=== PATIENT | female | born 2000 | race Caucasian/White ===

== ENCOUNTER 2019-11-27 13:25 | Emergency (ER) | payer OTHER ==
[~2019-11-27] VITALS: Ht 172.7 cm; Wt 78.5 kg
[2019-11-27 13:26] VITALS: BP 137/79
[2019-11-27] MEDS ORDERED: ACETAMINOPHEN TAB 650MG DOSE (2X325MG) PO ONE (14:30)
[2019-11-27 14:31] LABS: BASO % 0.5 % (0.0-1.0); EOS # 0.1 10^3/uL (0.0-0.5); EOS % 0.9 % (0.0-3.0); HEMATOCRIT 40.5 % (36.0-47.0); HEMOGLOBIN 13.2 g/dl (12.0-15.5); LYMPH # 1.6 10^3/uL (1.5-5.0); LYMPH % 27.5 % (24.0-44.0); MEAN CORPUSCULAR HEMOGLOBIN 29.7 pg (27.0-33.0); MEAN CORPUSCULAR HGB CONC 32.6 g/dl (32.0-36.5); MONO # 0.6 10^3/uL (0.0-0.8); MONO % 10.4 % (0.0-5.0); NEUTROPHILS # 3.4 10^3/uL (1.5-8.5); NEUTROPHILS % 60.7 % (36.0-66.0); PLATELET COUNT, AUTOMATED 254 10^3/uL (150-450); RED BLOOD COUNT 4.45 10^6/uL (4.00-5.40); WHITE BLOOD COUNT 5.7 10^3/uL (4.0-10.0)
[2019-11-27 14:58] LABS: HCG, SERUM QUALITATIVE NEGATIVE (NEGATIVE)
[2019-11-27 14:59] LABS: ALBUMIN 4.3 GM/DL (3.2-5.2); ALT/SGPT 37 U/L (12-78); BILIRUBIN,DIRECT 0.2 MG/DL (0.0-0.2); BILIRUBIN,TOTAL 0.7 MG/DL (0.2-1.0); BLOOD UREA NITROGEN 15 MG/DL (7-18); CALCIUM LEVEL 9.1 MG/DL (8.5-10.1); CARBON DIOXIDE LEVEL 27 MEQ/L (21-32); CHLORIDE LEVEL 108 MEQ/L (98-107); CREATININE FOR GFR 0.59 MG/DL (0.55-1.30); GLUCOSE, FASTING 93 MG/DL (70-100); SODIUM LEVEL 139 MEQ/L (136-145); TOTAL PROTEIN 7.3 GM/DL (6.4-8.2)
[2019-11-27] MEDS ORDERED: HIBI4LIQ EX (16:09)
--- NOTE | 2019-11-27 16:10 | REPVR ---
PROCEDURE INFORMATION: Exam: US Abdomen; Limited Exam date and time: 11/27/2019 3:59 PM Age: 19 years old Clinical indication: Abdominal tenderness; Abdominal pain; Generalized; Additional info: Drainage from umbilicus, concern for abscess TECHNIQUE: Imaging protocol: Limited ultrasound of the umbilical region. COMPARISON: No relevant prior studies available. FINDINGS: No pathologic soft tissue or cystic mass identified in the visualized umbilicus. IMPRESSION: No pathologic soft tissue or cystic mass identified in the visualized umbilicus. Electronically signed by: Neeraj Tejada On 11/27/2019 16:09:41 PM
== END 2019-11-27 16:19 | disposition home or self-care (01) ==
LOC: M ED 13:25
DX: R10.33 Periumbilical pain (principal); I10 Essential (primary) hypertension; F17.200 Nicotine dependence, unspecified, uncomplicated; Z88.1 Allergy status to other antibiotic agents

== ENCOUNTER → 2021-05-13 | Outpatient (CLI) | payer OTHER ==
[~2021-05-13] MED LIST: HIBI4LIQ EX
== END ==
LOC: M RAD 09:56
PROVIDERS: ATTEND Physician Assistant Medical
DX: Z32.01 Encounter for pregnancy test, result positive (principal); Z3A.14 14 weeks gestation of pregnancy

== ENCOUNTER 2022-10-15 09:18 | Inpatient (IN) | payer MEDICAID, OTHER, SELFPAY ==
[~2022-10-15] VITALS: Ht 175.3 cm; Wt 88.0 kg
[2022-10-15 09:59] LABS: HEMOGLOBIN 13.3 g/dl (12.0-15.5); MEAN CORPUSCULAR HEMOGLOBIN 31.1 pg (27.0-33.0); MEAN CORPUSCULAR HGB CONC 33.3 g/dl (32.0-36.5); MEAN CORPUSCULAR VOLUME 93.5 fl (80.0-96.0); PLATELET COUNT, AUTOMATED 274 10^3/uL (150-450); RED BLOOD COUNT 4.28 10^6/uL (4.00-5.40); WHITE BLOOD COUNT 5.3 10^3/uL (4.0-10.0)
[2022-10-15] MEDS ORDERED: MED REC IN PROGRESS XX SCH (10:20)
[2022-10-15 10:23] LABS: AMPHETAMINES LEVEL URINE NEGATIVE (NEGATIVE)
[2022-10-15 10:24] LABS: BARBITURATES URINE NEGATIVE (NEGATIVE); BENZODIAZEPINES URINE NEGATIVE (NEGATIVE); CANNABINOIDS URINE NEGATIVE (NEGATIVE); COCAINE METABOLITE URINE NEGATIVE (NEGATIVE); METHADONE URINE NEGATIVE (NEGATIVE); OPIATES URINE NEGATIVE (NEGATIVE); PHENCYCLIDINE URINE NEGATIVE (NEGATIVE)
[2022-10-15 10:40] LABS: ALBUMIN 3.8 G/DL (3.2-5.2); ALKALINE PHOSPHATASE 60 U/L (46-116); ALT/SGPT 21 U/L (7.0-40); AST/SGOT 16 U/L (<34); BILIRUBIN,DIRECT 0.2 MG/DL (<0.4); BILIRUBIN,TOTAL 0.5 MG/DL (0.3-1.2); BLOOD UREA NITROGEN 9 MG/DL (9-23); CALCIUM LEVEL 9.1 MG/DL (8.5-10.1); CARBON DIOXIDE LEVEL 27 MMOL/L (20-31); CHLORIDE LEVEL 108 MMOL/L (98-107); CREATININE FOR GFR 0.64 MG/DL (0.55-1.30); GLOMERULAR FILTRATION RATE > 60.0 (>60); GLUCOSE, FASTING 83 MG/DL (60-100); SALICYLATE LEVEL < 3.0 MG/DL (<30); SODIUM LEVEL 140 MMOL/L (136-145); TOTAL PROTEIN 6.6 G/DL (5.7-8.2)
[2022-10-15 10:42] LABS: ETHYL ALCOHOL (ETHANOL) < 0.003 % (0.000-0.010); THYROID STIMULATING HORMONE 2.275 uIU/ML (0.55-4.78)
[2022-10-15 10:44] LABS: ACETAMINOPHEN LEVEL < 2.0 UG/ML (10.0-20.0)
[2022-10-15 11:18] LABS: HCG, SERUM QUALITATIVE NEGATIVE (NEGATIVE)
[2022-10-15] MEDS ORDERED: ACETAMINOPHEN TAB 650MG DOSE (2X325MG) PO PRN (11:45)
[2022-10-15] MEDS ORDERED: LORazepam 2 MG TAB PO PRN (11:45)
[2022-10-15] MEDS ORDERED: MAALOX 30 ML SUSP *UDC PO PRN (11:45)
[2022-10-15] MEDS ORDERED: OLANZapine ORAL DISINTEGRATING TAB 5MG PO PRN (11:45)
[2022-10-15] MEDS ORDERED: IBUPROFEN 400MG TAB PO PRN (11:45)
[2022-10-15] MEDS ORDERED: traZODone 50 MG TAB PO PRN (11:45)
[2022-10-15] MEDS ORDERED: MOM 30ML SUSPENSION UDC PO PRN (11:45)
[2022-10-15] MEDS ORDERED: HOME MED LIST COMPLETE! XX SCH (12:50)
[2022-10-15] MEDS ORDERED: THIAMINE 100 MG TAB PO SCH (13:32)
[2022-10-15 14:44] VITALS: BP 122/69; TEMP 98.1; O2SAT 98
[2022-10-15] MEDS: FOLIC ACID 1MG TAB PO SCH (16:39)
[2022-10-15] MEDS: MULTIVITAMINS/MINERALS THERAP 1 TAB PO SCH (16:39)
[2022-10-15 17:42] VITALS: BP 122/69
[2022-10-15] MEDS: THIAMINE 100 MG TAB PO SCH (21:05)
[2022-10-16 02:00] VITALS: BP 122/69
[2022-10-16 06:29] VITALS: BP 135/90; TEMP 97.6; O2SAT 99
[2022-10-16] MEDS: FOLIC ACID 1MG TAB PO SCH (09:27)
[2022-10-16] MEDS: THIAMINE 100 MG TAB PO SCH ×2 (09:28→20:48)
[2022-10-16] MEDS: MULTIVITAMINS/MINERALS THERAP 1 TAB PO SCH (09:28)
[2022-10-16] MEDS: DULoxetine 30MG CAPSULE (CYMBALTA) PO SCH (10:11)
[2022-10-16] MEDS: NICOTINE 21MG/24HR 1 EA TRANSDERMAL TD PRN (10:11)
[2022-10-16 14:00] VITALS: BP 150/85
[2022-10-16 18:06] VITALS: BP 150/91; TEMP 97.8
[2022-10-16] MEDS: MIRTAZAPINE 15 MG TAB PO SCH (20:48)
[2022-10-16 22:00] VITALS: BP 150/91
[2022-10-17 06:37] VITALS: BP 130/86; TEMP 98.2; O2SAT 99
[2022-10-17] MEDS: MULTIVITAMINS/MINERALS THERAP 1 TAB PO SCH (09:23)
[2022-10-17] MEDS: DULoxetine 30MG CAPSULE (CYMBALTA) PO SCH (09:23)
[2022-10-17] MEDS: THIAMINE 100 MG TAB PO SCH ×2 (09:23→21:05)
[2022-10-17] MEDS: FOLIC ACID 1MG TAB PO SCH (09:24)
[2022-10-17] MEDS: NICOTINE 21MG/24HR 1 EA TRANSDERMAL TD PRN (09:26)
[2022-10-17 17:42] VITALS: BP 135/87; TEMP 97.8; O2SAT 98
[2022-10-17] MEDS: MIRTAZAPINE 15 MG TAB PO SCH (21:05)
[2022-10-18 06:08] VITALS: BP 148/86; TEMP 98.1; O2SAT 98
[2022-10-18] MEDS: DULoxetine 30MG CAPSULE (CYMBALTA) PO SCH (09:39)
[2022-10-18] MEDS: THIAMINE 100 MG TAB PO SCH (09:39)
[2022-10-18] MEDS: NICOTINE 21MG/24HR 1 EA TRANSDERMAL TD PRN (09:39)
[2022-10-18] MEDS: FOLIC ACID 1MG TAB PO SCH (09:39)
[2022-10-18] MEDS: MULTIVITAMINS/MINERALS THERAP 1 TAB PO SCH (09:40)
[2022-10-18] MEDS ORDERED: cloNIDine 0.1MG TABLET PO PRN (14:35)
[2022-10-18] MEDS: amLODIPine 5 MG TAB PO SCH (14:49)
[2022-10-18 18:28] VITALS: BP 164/102; TEMP 98.7; O2SAT 92
[2022-10-18] MEDS: MIRTAZAPINE 15 MG TAB PO SCH (20:31)
[2022-10-19 05:55] VITALS: BP 146/92; TEMP 97.9; O2SAT 98
[2022-10-19 09:00] VITALS: BP 142/98
[2022-10-19] MEDS: MULTIVITAMINS/MINERALS THERAP 1 TAB PO SCH (09:01)
[2022-10-19] MEDS: NICOTINE 21MG/24HR 1 EA TRANSDERMAL TD PRN (09:01)
[2022-10-19] MEDS: DULoxetine 30MG CAPSULE (CYMBALTA) PO SCH (09:01)
[2022-10-19] MEDS: amLODIPine 5 MG TAB PO SCH (09:01)
[2022-10-19] MEDS: FOLIC ACID 1MG TAB PO SCH (09:01)
[2022-10-19] MEDS: diphenhydrAMINE 25MG CAP PO PRN ×2 (11:56→23:11)
[2022-10-19 17:53] VITALS: BP 137/76; TEMP 97.5; O2SAT 94
[2022-10-19] MEDS: MIRTAZAPINE 15 MG TAB PO SCH (20:45)
[2022-10-20 07:07] VITALS: BP 131/83; TEMP 97.7; O2SAT 98
[2022-10-20] MEDS: DULoxetine 30MG CAPSULE (CYMBALTA) PO SCH (08:47)
[2022-10-20] MEDS: FOLIC ACID 1MG TAB PO SCH (08:47)
[2022-10-20] MEDS: amLODIPine 5 MG TAB PO SCH (08:47)
[2022-10-20] MEDS: MULTIVITAMINS/MINERALS THERAP 1 TAB PO SCH (08:47)
[2022-10-20] MEDS: NICOTINE 21MG/24HR 1 EA TRANSDERMAL TD PRN (08:48)
[2022-10-20] MEDS ORDERED: TRAZ-252 PO (09:35)
[2022-10-20] MEDS ORDERED: AMLO1TAB24 PO (09:35)
[2022-10-20] MEDS ORDERED: NICO21PAT TD (09:35)
[2022-10-20] MEDS ORDERED: MIRT-10 PO (09:35)
[2022-10-20] MEDS ORDERED: VITMTA PO (09:35)
[2022-10-20] MEDS ORDERED: CLONI1TA PO (09:35)
[2022-10-20] MEDS ORDERED: CYMB1CAP5 PO (09:35)
[2022-10-20] MEDS: diphenhydrAMINE 25MG CAP PO PRN (11:11)
[2022-10-20 18:23] VITALS: BP 140/89; TEMP 97.3; O2SAT 99
[2022-10-20] MEDS: MIRTAZAPINE 15 MG TAB PO SCH (22:43)
[2022-10-21 06:56] VITALS: BP 135/90; TEMP 97.4; O2SAT 97
[2022-10-21] MEDS ORDERED: HYDR50TA70 PO (08:20)
[2022-10-21 08:36] VITALS: BP 136/84
[2022-10-21 08:37] VITALS: BP 136/84
[2022-10-21] MEDS: amLODIPine 5 MG TAB PO SCH (08:37)
[2022-10-21] MEDS: FOLIC ACID 1MG TAB PO SCH (08:37)
[2022-10-21] MEDS: NICOTINE 21MG/24HR 1 EA TRANSDERMAL TD PRN (08:37)
[2022-10-21] MEDS: MULTIVITAMINS/MINERALS THERAP 1 TAB PO SCH (08:37)
[2022-10-21] MEDS: DULoxetine 30MG CAPSULE (CYMBALTA) PO SCH (08:37)
[2022-10-21] MEDS: diphenhydrAMINE 25MG CAP PO PRN (13:23)
== END 2022-10-21 15:03 | disposition home or self-care (01) | DRG 751 ==
LOC: M ED 09:18 → M ED INP 11:43 → M PSY 14:38
PROVIDERS: ADMIT Psychiatry & Neurology Psychiatry; ATTEND Student in an Organized Health Care Education/Training Program
DX: F33.2 Major depressive disorder, recurrent severe without psychotic features (principal); R45.851 Suicidal ideations; F43.10 Post-traumatic stress disorder, unspecified; Z59.00 Homelessness unspecified; Z79.899 Other long term (current) drug therapy; Z88.8 Allergy status to other drugs, medicaments and biological substances; F17.200 Nicotine dependence, unspecified, uncomplicated; F12.90 Cannabis use, unspecified, uncomplicated; F14.90 Cocaine use, unspecified, uncomplicated; F15.90 Other stimulant use, unspecified, uncomplicated

== ENCOUNTER → 2023-06-13 | Outpatient (CLI) | payer OTHER ==
[~2023-06-13] MED LIST changes: +AMLO1TAB24 PO; +CLONI1TA PO; +CYMB1CAP5 PO; +HYDR50TA70 PO; +MIRT-10 PO; +NICO21PAT TD; +TRAZ-252 PO; +VITMTA PO
[2023-06-13 15:56] LABS: HEMATOCRIT 36.3 % (36.0-47.0); HEMOGLOBIN 12.1 g/dl (12.0-15.5); MEAN CORPUSCULAR HEMOGLOBIN 31.4 pg (27.0-33.0); MEAN CORPUSCULAR HGB CONC 33.3 g/dl (32.0-36.5); MEAN CORPUSCULAR VOLUME 94.3 fl (80.0-96.0); PLATELET COUNT, AUTOMATED 324 10^3/uL (150-450); RED BLOOD COUNT 3.85 10^6/uL (4.00-5.40); WHITE BLOOD COUNT 11.4 10^3/uL (4.0-10.0)
[2023-06-13 16:24] LABS: CREATININE,RANDOM URINE 49.4 MG/DL
[2023-06-13 16:25] LABS: URIC ACID 3.6 MG/DL (3.1-7.8)
[2023-06-13 16:27] LABS: LDH LACTATE DEHYDROGENASE 163 U/L (120-246)
[2023-06-13 16:35] LABS: TOTAL PROTEIN,RANDOM URINE < 6.0 MG/DL (0.0-14.0)
[2023-06-13 16:58] LABS: HIV 1&2 SCREEN NEGATIVE (NEGATIVE)
[2023-06-13 17:06] LABS: ALT/SGPT 11 U/L (7.0-40); AST/SGOT 11 U/L (<34); CREATININE FOR GFR 0.46 MG/DL (0.55-1.30); GLOMERULAR FILTRATION RATE > 60.0 (>60); HEPATITIS C VIRUS ABY INDEX 0.05 INDEX (<0.8)
[2023-06-13 17:26] LABS: BILIRUBIN,TOTAL 0.5 MG/DL (0.3-1.2)
[2023-06-14 12:40] LABS: GC DNA AMPLIFICATION NEGATIVE (NEGATIVE)
== END ==
LOC: M PLALAB 14:27
PROVIDERS: ATTEND Advanced Practice Midwife
DX: Z34.81 Encounter for supervision of other normal pregnancy, first trimester (principal)

== ENCOUNTER → 2023-07-28 | Outpatient (CLI) | payer OTHER | LOC: M WHC 13:21 | PROVIDERS: ATTEND Advanced Practice Midwife | DX: Z34.82 Encounter for supervision of other normal pregnancy, second trimester (principal); Z3A.20 20 weeks gestation of pregnancy ==

== ENCOUNTER → 2023-09-08 | Outpatient (CLI) | payer OTHER ==
[2023-09-08 13:50] LABS: HEMATOCRIT 34.2 % (36.0-47.0); HEMOGLOBIN 11.7 g/dl (12.0-15.5); MEAN CORPUSCULAR HEMOGLOBIN 31.9 pg (27.0-33.0); MEAN CORPUSCULAR HGB CONC 34.2 g/dl (32.0-36.5); MEAN CORPUSCULAR VOLUME 93.2 fl (80.0-96.0); PLATELET COUNT, AUTOMATED 299 10^3/uL (150-450); RED BLOOD COUNT 3.67 10^6/uL (4.00-5.40)
[2023-09-08 15:09] LABS: GC DNA AMPLIFICATION NEGATIVE (NEGATIVE)
== END ==
LOC: M PLALAB 09:05
PROVIDERS: ATTEND Specialist
DX: Z34.82 Encounter for supervision of other normal pregnancy, second trimester (principal)

== ENCOUNTER → 2023-11-21 | Outpatient (REF) | payer OTHER ==
[~2023-11-21] MED LIST changes: +ACET-683 PO; +COLA100C5 PO; +FERR325T3 PO; +IBUP-1022 PO; +PREN1CHW4 PO; +TUMS500C PO
== END ==
LOC: M PLALAB 10:31
PROVIDERS: ATTEND Obstetrics & Gynecology
DX: Z36.85 Encounter for antenatal screening for Streptococcus B (principal); Z3A.36 36 weeks gestation of pregnancy

== ENCOUNTER 2023-12-09 11:51 | Inpatient (IN) | payer OTHER ==
[2023-12-09] VITALS (15 sets, daily range): BP systolic 109–182; BP diastolic 60–90; O2SAT 94–99
[~2023-12-09] VITALS: Ht 175.3 cm; Wt 123.8 kg
[~2023-12-09 11:51] MED LIST changes: -ACET-683 PO; -COLA100C5 PO; -FERR325T3 PO; -IBUP-1022 PO; -PREN1CHW4 PO; -TUMS500C PO
[2023-12-09] MEDS ORDERED: TUMS500C PO (12:35)
[2023-12-09] MEDS ORDERED: PREN1CHW4 PO (12:35)
[2023-12-09] MEDS ORDERED: HOME MED LIST COMPLETE! XX SCH (12:40)
[2023-12-09 13:31] LABS: HEMATOCRIT 33.1 % (36.0-47.0); HEMOGLOBIN 10.9 g/dl (12.0-15.5); MEAN CORPUSCULAR HEMOGLOBIN 29.3 pg (27.0-33.0); MEAN CORPUSCULAR HGB CONC 32.9 g/dl (32.0-36.5); PLATELET COUNT, AUTOMATED 282 10^3/uL (150-450); RED BLOOD COUNT 3.72 10^6/uL (4.00-5.40); WHITE BLOOD COUNT 9.4 10^3/uL (4.0-10.0)
[2023-12-09] MEDS: miSOPROStol 50MCG 1/2 TABLET SL SCH (13:46)
[2023-12-09 14:49] LABS: HEPATITIS C VIRUS ABY INDEX < 0.02 INDEX (<0.8)
[2023-12-09] MEDS: PROMETHAZINE 25MG/ML 1ML VIAL IV ONE (22:30)
[2023-12-09] MEDS: BUTORPHANOL 2 MG/ML 1ML VIAL IV ONE (22:30)
[2023-12-10] VITALS (35 sets, daily range): BP systolic 128–185; BP diastolic 64–95; O2SAT 93–98
[2023-12-10] MEDS: PENICILLIN G POTASSIUM 5 MU IV 5 MU in D5W MINI-BAG PLUS 100 ML IV STA (01:26)
[2023-12-10] MEDS ORDERED: EPIDURAL/PCA KEYS XX PRN (01:35)
[2023-12-10] MEDS ORDERED: diphenhydrAMINE 50MG/ML VIAL IV PRN (01:35)
[2023-12-10] MEDS ORDERED: ePHEDrine SULFATE 25 MG/5 ML(5MG/ML) SYRINGE IVP PRN (01:35)
[2023-12-10] MEDS ORDERED: LR 500 ML IV PRN (01:35)
[2023-12-10] MEDS ORDERED: ONDANSETRON 4MG 2ML VIAL IV PRN (01:35)
[2023-12-10] MEDS ORDERED: NALOXONE INJ 0.4MG/1ML VIAL IV PRN (01:35)
[2023-12-10] MEDS: FENTANYL/ROPIVACAINE/NACL BAG 100 ML EPIDURAL SCH (02:08)
[2023-12-10] MEDS: PEN G POT 3,000,000 UNIT/50 ML 3,000,000 UNIT in IV 1 EA IV SCH (05:51)
[2023-12-10] MEDS: LR 1,000 ML IV SCH (07:35)
[2023-12-10] MEDS: LIDOCAINE 1% MDV 20ML VIAL INFIL PRN (10:37)
[2023-12-10 11:15] LABS: CORD GAS ABE A -1.1; CORD GAS ABE V -5.1; CORD GAS HCO3 A 26.4 MMOL/L; CORD GAS HCO3 V 19.3 MMOL/L; CORD GAS O2 SAT A 16.4 %; CORD GAS O2 SAT V 65.2 %; CORD GAS PCO2 A 55.8 mmHg; CORD GAS PCO2 V 34.2 mmHg; CORD GAS PH A 7.293 UNITS; CORD GAS PH V 7.369 UNITS; CORD GAS PO2 A 11.3 mmHg; CORD GAS PO2 V 26.1 mmHg; CORD GAS SBC A 21.6 MMOL/L; CORD GAS SBC V 19.6 MMOL/L; CORD GAS TCO2 A 28.1 MMOL/L; CORD GAS TCO2 V 20.3 MMOL/L
[2023-12-10] MEDS: OXYTOCIN DRIP 30 UNITS in IV 1 EA IV PRN (11:15)
[2023-12-10] MEDS ORDERED: RHO(D) IMMUNE GLOBULIN/MALTOSE 500MCG(2500IU)/2.2ML VIAL (WINRHO) IM SCH (11:25)
[2023-12-10] MEDS ORDERED: IBUPROFEN 600MG TAB PO PRN (11:25)
[2023-12-10] MEDS ORDERED: METHYLERGONOVINE MALEATE 0.2 MG TAB PO PRN (11:25)
[2023-12-10] MEDS ORDERED: ACETAMINOPHEN TAB 650MG DOSE (2X325MG) PO PRN (11:25)
[2023-12-10] MEDS: IBUPROFEN 800 MG TAB PO PRN (14:19)
[2023-12-10] MEDS ORDERED: SLF 3 ML SYR IV PRN (15:05)
[2023-12-10] MEDS: SLF 3 ML SYR IV SCH (22:24)
[2023-12-11 02:00] VITALS: BP 124/80; O2SAT 97
[2023-12-11 06:03] VITALS: BP 129/81; O2SAT 98
[2023-12-11 06:47] LABS: HEMATOCRIT 23.7 % (36.0-47.0); MEAN CORPUSCULAR HEMOGLOBIN 29.5 pg (27.0-33.0); MEAN CORPUSCULAR HGB CONC 32.5 g/dl (32.0-36.5); MEAN CORPUSCULAR VOLUME 90.8 fl (80.0-96.0); PLATELET COUNT, AUTOMATED 216 10^3/uL (150-450); RED BLOOD COUNT 2.61 10^6/uL (4.00-5.40); WHITE BLOOD COUNT 12.8 10^3/uL (4.0-10.0)
[2023-12-11 06:48] LABS: HEMOGLOBIN 7.7 g/dl (12.0-15.5)
[2023-12-11] MEDS: PRENATAL VITAMINS CHEWABLE TABLET PO SCH (07:41)
[2023-12-11 10:00] VITALS: BP 123/68; O2SAT 97
[2023-12-11 14:03] VITALS: BP 135/77; O2SAT 98
[2023-12-11] MEDS: ACETAMINOPHEN 500 MG TAB PO PRN (14:45)
[2023-12-11 18:00] VITALS: BP 132/66; O2SAT 100
[2023-12-11] MEDS: DIBUCAINE 1% OINTMENT 30GM TOP PRN (20:33)
[2023-12-11] MEDS: DOCUSATE SODIUM 100MG CAPSULE PO PRN (20:34)
[2023-12-11 22:00] VITALS: BP 131/61; O2SAT 97
[2023-12-12 02:00] VITALS: BP 117/56; O2SAT 96
[2023-12-12 05:56] VITALS: BP 123/68; O2SAT 98
[2023-12-12] MEDS: MEASLES,MUMPS,RUBELLA VACCINE INJ (MMR-II) SC.IMMUN ONE (08:32)
[2023-12-12] MEDS ORDERED: IBUP-1022 PO (09:36)
[2023-12-12] MEDS ORDERED: COLA100C5 PO (09:36)
[2023-12-12] MEDS ORDERED: ACET-683 PO (09:36)
[2023-12-12] MEDS ORDERED: FERR325T3 PO (09:36)
[2023-12-12 10:52] VITALS: BP 128/87; O2SAT 99
== END 2023-12-12 12:30 | disposition home or self-care (01) | DRG 541 ==
LOC: M LDI 11:51 → M OBS 12-10 14:35
PROVIDERS: ADMIT Specialist; ATTEND Specialist
PROC: 3E0P7VZ Introduction of Hormone into Female Reproductive, Via Natural or Artificial Opening (ICD-10-PCS; 2023-12-09)
PROC: 10D07Z3 Extraction of Products of Conception, Low Forceps, Via Natural or Artificial Opening (ICD-10-PCS; principal; 2023-12-10)
PROC: 0KQM0ZZ Repair Perineum Muscle, Open Approach (ICD-10-PCS; 2023-12-10)
PROC: 10D17Z9 Manual Extraction of Products of Conception, Retained, Via Natural or Artificial Opening (ICD-10-PCS; 2023-12-10)
DX: O10.92 Unspecified pre-existing hypertension complicating childbirth (principal); O32.4XX0 Maternal care for high head at term, not applicable or unspecified; Z37.0 Single live birth; Z3A.39 39 weeks gestation of pregnancy; O73.0 Retained placenta without hemorrhage; O69.82X0 Labor and delivery complicated by other cord entanglement, without compression, not applicable or unspecified; O70.1 Second degree perineal laceration during delivery